=== PATIENT | female | born 2000 | race Caucasian/White ===

== ENCOUNTER 2019-08-22 17:01 | Inpatient (IN) | payer OTHER ==
[~2019-08-22] VITALS: Ht 160 cm; Wt 83.2 kg
[~2019-08-22 17:01] MED LIST: MACROBID100 M1 PO; PREDNICOT10 MG PO
[2019-08-22 17:08] VITALS: BP 120/79
[2019-08-22 17:32] LABS: BASO # 0.1 10*3/uL (0.0-0.1); BASO % 0.5 % (0.0-1.0); EOS # 0.2 10*3/uL (0.0-0.4); EOS % 1.4 % (1.0-4.0); HEMATOCRIT 41.5 % (37.0-47.0); HEMOGLOBIN 13.1 g/dl (12.0-16.0); LYMPH # 3.3 10*3/uL (1.3-4.4); LYMPH % 31.6 % (27.0-41.0); MEAN CELL VOLUME 86.8 fl (81.0-99.0); MEAN CORPUSCULAR HGB 27.4 pg (27.0-31.0); MEAN CORPUSCULAR HGB CONC 31.6 g/dl (33.0-37.0); MEAN PLATELET VOLUME 10.1 fl (9.6-12.3); MONO # 0.8 10*3/uL (0.1-1.0); MONO % 7.5 % (3.0-9.0); NEUT # 6.1 10*3/uL (2.3-7.9); NEUT % 58.7 % (47.0-73.0); PLATELET COUNT AUTOMATED 326 10*3/uL (130-400); RED BLOOD COUNT 4.78 10*6/uL (4.10-5.10); RED CELL DISTRI WIDTH 14.2 % (0-14.5); WHITE BLOOD COUNT 10.4 10*3/uL (4.8-10.8)
[2019-08-22 17:44] LABS: COLOR YELLOW (YELLOW)
[2019-08-22 17:45] LABS: BILIRUBIN NEGATIVE (NEGATIVE); BLOOD 3+ (NEGATIVE); CLARITY CLEAR (CLEAR); GLUCOSE NEGATIVE (NEGATIVE); KETONE NEGATIVE (NEGATIVE); LEUKO ESTERASE NEGATIVE (NEGATIVE); NITRITE NEGATIVE (NEGATIVE); PH 6.5 (5.0-9.0); UROBILINOGEN 0.2 E.U./dl (0.2-1.0)
[2019-08-22 17:47] LABS: ALBUMIN 4.2 gm/dl (3.1-4.5); ALKALINE PHOSPHATASE 75 U/L (45-117); BUN 11 mg/dl (7-24); CHLORIDE 105 mmol/L (98-107); CREATININE 0.93 mg/dL (0.55-1.02); LIPASE 170 U/L (73-393); POTASSIUM 3.9 mmol/L (3.5-5.1); SGOT/AST 14 IU/L (3-35); SGPT/ALT 29 U/L (12-78); SODIUM 140 mmol/L (136-145)
[2019-08-22 17:57] LABS: BACTERIA 1+; RBC 0-2 rbc/hpf (0-2)
--- NOTE | 2019-08-22 18:52 | NUR ---
PT RESTING IN BED. STATES TORADOL HELPED PAIN A LITTLE. IN NO ACUTE DISTRESS.
--- NOTE | 2019-08-22 21:00 | NUR ---
NG TUBE PLACED IN LEFT NOSTRIL. PT TOLERATED PROCEDURE WELL. PLACEMENT WAS HEARD VIA STETHOSCOPE AND SYRINGE. DR KHANNA NOTIFIED AND WILL ORDER XRAY FOR CONFIRMATION.
--- NOTE | 2019-08-22 21:51 | NUR ---
PTS NG TUBE CAME OUT. PT AWAKE AND ALERT, IN NO ACUTE DISTRESS. ANOTHER NG TUBE WILL BE PLACED.
--- NOTE | 2019-08-22 22:04 | NUR ---
NG TUBE PLACED IN PTS LEFT NOSTRIL. PT HANDLED PROCEDURE WELL. DR KHANNA WAS NOTIFIED AND I WAS ADVISED TO ORDER ANOTHER CHEST XRAY FOR NG PLACEMENT
[2019-08-22 22:40] VITALS: BP 126/70
--- NOTE | 2019-08-22 22:45 | NUR ---
DR. EDWARDS PHONED AND ASKED IF PT IS TO BE HOOKED UP TO LIS. V.O. FOR LIS TO NG.
--- NOTE | 2019-08-22 23:14 | NUR ---
Time: 2239 A 19 year old FEMALE admitted to under services of YAMILKA HURTADO DO. Pt. arrived via ambulatory from ER. Chief complaint: ABD PAIN. DANIEL DELCID
[2019-08-22] MEDS ORDERED: LEXAPRO10 MG PO (23:19)
--- NOTE | 2019-08-22 23:23 | NUR ---
PT MEDICATED W/IVP ZOFRAN FOR C/O NAUSEA. WILL MONITOR.
--- NOTE | 2019-08-22 23:31 | NUR ---
PT MEDICATED W/DILAUDID IVP FOR C/O RLQ ABD PAIN 12/17. PT RESTING QUIETLY IN BED W/NG AT LIS. CALL LIGHT IN REACH.
[2019-08-23] VITALS: BP 120/67
[2019-08-23 06:31] LABS: BASO % 0.4 % (0.0-1.0); EOS # 0.1 10*3/uL (0.0-0.4); EOS % 1.6 % (1.0-4.0); HEMATOCRIT 40.2 % (37.0-47.0); HEMOGLOBIN 12.3 g/dl (12.0-16.0); LYMPH # 2.8 10*3/uL (1.3-4.4); LYMPH % 37.7 % (27.0-41.0); MEAN CELL VOLUME 87.6 fl (81.0-99.0); MEAN CORPUSCULAR HGB 26.8 pg (27.0-31.0); MEAN CORPUSCULAR HGB CONC 30.6 g/dl (33.0-37.0); MEAN PLATELET VOLUME 10.3 fl (9.6-12.3); MONO # 0.5 10*3/uL (0.1-1.0); MONO % 7.2 % (3.0-9.0); NEUT # 3.9 10*3/uL (2.3-7.9); NEUT % 52.8 % (47.0-73.0); PLATELET COUNT AUTOMATED 256 10*3/uL (130-400); RED BLOOD COUNT 4.59 10*6/uL (4.10-5.10); RED CELL DISTRI WIDTH 14.3 % (0-14.5); WHITE BLOOD COUNT 7.4 10*3/uL (4.8-10.8)
[2019-08-23 06:47] LABS: ACT PARTIAL THROMBO TIME 29.6 SECONDS (20.0-32.1)
[2019-08-23 06:59] LABS: ALBUMIN 3.5 gm/dl (3.1-4.5); BUN 9 mg/dl (7-24); CHLORIDE 111 mmol/L (98-107); CHOLESTEROL 167 mg/dL (<200); CREATININE 0.96 mg/dL (0.55-1.02); POTASSIUM 4.1 mmol/L (3.5-5.1); SGOT/AST 14 IU/L (3-35); SGPT/ALT 26 U/L (12-78); SODIUM 143 mmol/L (136-145); TOTAL PROTEIN 6.6 gm/dL (6.4-8.2); TRIGLYCERIDES 140 mg/dl (<150); VLDL CHOLESTEROL 28 mg/dL (6-40)
[2019-08-23 07:05] LABS: ALKALINE PHOSPHATASE 61 U/L (45-117); HDL CHOLESTEROL 41 mg/dl (40-60); LDL CHOLESTEROL 98 mg/dL (9-159)
--- NOTE | 2019-08-23 07:15 | NUR ---
VITAL SIGNS ARE STABLE AT THIS TIME. PATIENT IS RESTING IN BED. SHE IS A&OX3. PATIENT IS PLEASANT AND COOPERATIVE. 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 MSPS INTACT. HEART SOUNDS ARE NORMAL. LUNG SOUNDS ARE CLEAR THROUGHOUT. ABDOMEN IS SOFT, NONTENDER AND NON DISTENDED. BSX4, HYPERACTIVE. PATIENT DENIES PASSING ANY FLATULANCE. HER LAST BM WAS YESTERDAY MORNING. THE PATIENT DOES HAVE A 22G IV INTACT TO THE LEFT ARM, IT IS PATENT. CAPILLARY REFILL IS LESS THAN 3 SECONDS. SKIN TURGOR IS GOOD AND IT IS NON TENTING. SALEM SUMP NGT INTACT TO THE LEFT NARE ON LOW INTERMITTENT SUCTION. THERE IS APPROX 30ML OF CONTENTS IN THE CONTAINER. PATIENT IS RESTING AT THIS TIME. CALL LIGHT WITHIN REACH. WILL CONTINUE TO MONITOR PATIENT. PETER DEL ROSARIO [facility]
--- NOTE | 2019-08-23 07:22 | NUR ---
THE PATIENT RECEIVED DILAUDID 1MG IVP BY HUNTER KIMBALL FOR COMPLAINTS OF MID ABDOMINAL PAIN. SHE STATES THAT HER PAIN IS A 6 OUT OF 10. THE PATIENT IS RESTING IN HER BED AT THIS TIME. HER LIGHT HAVE BEEN DIMMED. WILL CONTINUE TO MONITOR PATIENT. CALL LIGHT IN REACH. PETER DEL ROSARIO [facility] [place]
--- NOTE | 2019-08-23 07:22 | NUR ---
PATIENT RECEIVED DILAUDID 1MG IVP BY HUNTER KIMBALL RN FOR COMPLAINTS OF MID ABDOMINAL PAIN. THE PATIENT RATES HER PAIN A 6 OUT OF 10. PETER SHARMA
--- NOTE | 2019-08-23 07:50 | NUR ---
DR HERNANDEZ IN TO SEE PATIENT. SEE NEW ORDERS. PETER DEL ROSARIO [facility]
--- NOTE | 2019-08-23 07:50 | NUR ---
DR HERNANDEZ IN TO SEE PATIENT AT THIS TIME. PETER DEL ROSARIO [facility]
[2019-08-23 08:00] VITALS: BP 124/82
--- NOTE | 2019-08-23 08:00 | NUR ---
THE PATIENT STATES THAT THE MEDICATION HAS DECREASED HER PAIN LEVEL. SHE NOW RATES HER PAIN A 2 OUT OF 10. PATIENT CONTINUES TO REST. CALL LIGHT WITHIN REACH. WILL CONTINUE TO MONITOR PATIENT. PETER DEL ROSARIO [employer]
[2019-08-23 08:49] LABS: VITAMIN D, 25-HYDROXY 24.6 ng/mL (30-100)
--- NOTE | 2019-08-23 09:00 | NUR ---
Debt Counselor in to talk to patient. Patient states lives at home with her fidoretha and daughter. There are 0 steps in the home. Physician: Jennifer Mcrae Pharmacy: [facility] Home health services: none Patient's level of ADLs: INDEPENDENT Patient has working utilities: yes DME: none Follow-up physician's appointment after d/c: will be made by the hospitalist nurse director upon discharge Does patient want to access PORTAL?: no Discharge plan discussed with patient. Madalyn and daughter at bedside. She is sitting up in her bedside chair without distress noted. She lives at home with her family. She is independent in her ADLs and ambulation. Discussed home health care services and she denies any home needs. When medically stable she will be discharged to home. She states her madalyn will provide transportation on discharge. NEGAR LUIS
--- NOTE | 2019-08-23 09:36 | NUR ---
THE PATIENT IS UP AND WAS ASSITED TO SIT IN THE RECLINER IN HER ROOM. SHE HAS NO COMPLAINTS AT THIS TIME. CALL LIGHT IN REACH. WILL CONTINUE TO MONITOR PATIENT. PETER SHARMA
--- NOTE | 2019-08-23 09:40 | NUR ---
DR CRAVEN IN TO SEE PATIENT. PETER DEL ROSARIO [facility]
--- NOTE | 2019-08-23 10:12 | NUR ---
PATIENT HAS FAMILY IS IN THE PATIENT ROOM VISITING. PETER DEL ROSARIO [facility]
--- NOTE | 2019-08-23 10:48 | NUR ---
THE PATIENTS NGT AND IV FLUIDS WERE DISCONECTED TEMPORARILY FOR THE PATIENT TO AMBULATE AROUND THE UNIT WITH THE ASSISTANCE OF MYSELF. TOLERATED WELL. SHE DID NOT EXPERIENCE ANY DIZZINESS, DIAPHORESIS, ABDOMINAL PAIN, HEADACHE OR ANY OTHER COMPLAINTS. THE PATIENT HAS BEEN RECONNECTED TO HER IV FLUIDS AND NGT AFTER AMBULATING. PETER SHARMA
--- NOTE | 2019-08-23 11:36 | NUR ---
DILAUDID 1MG IVP BY HUNTER KIMBALL WAS ADMINISTERED FOR COMPLAINTS OF A HEADACHE THAT HAD AN ONSET OF APPROX 10 MINUTES AGO. SHE DESCRIBES IT A THROBBING SENSATION. SHE RATES HER PAIN A 6/10. WILL CONTINUE TO MONITOR PATIENT. CALL LIGHT IN REACH. PETER DEL ROSARIO [facility]
[2019-08-23 12:00] VITALS: BP 116/76
--- NOTE | 2019-08-23 12:07 | NUR ---
THE PATIENT STATES THAT HER HEADACHE HAS IMPROVED. SHE NOTES THAT THE MEDICATION WAS EFFECTIVE. SHE IS RESTING IN BED AT THIS TIME WITH HER EYES CLOSED. RESPIRATIONS ARE NON LABORED AND EASY. HER BOYFRIEND IS AT HER BEDSIDE. SHE HAS NO FUTHER COMPLAINTS. CALL LIGHT WITHIN REACH. WILL CONTINUE TO MONITOR PATIENT. PETER DEL ROSARIO [facility]
--- NOTE | 2019-08-23 14:44 | NUR ---
Nutritional Support Services Note: Dx of SBO, abdominal pain. She currently is NPO. NGT to LIS. IVF as ordered. Will follow for advancement of po intake. Ingrid Russell Rdn Ld
[2019-08-23 16:00] VITALS: BP 107/68
--- NOTE | 2019-08-23 18:45 | NUR ---
PT MEDICATED WITH PRN ZOFRAN AND DILAUDID FOR C/O NAUSEA AND ABDOMINAL PAIN. WILL MONITOR.
--- NOTE | 2019-08-23 19:45 | NUR ---
24 HOUR CHART CHECK COMPLETE
[2019-08-23 20:00] VITALS: BP 109/51
--- NOTE | 2019-08-23 20:05 | NUR ---
PATIENT NG REMAINS INTACT IN LEFT NARES AT THIS TIME AND REMAINS TO LOW INTERMITTENT SUCTION VIA WALL SUCTION, THERE HAS BEEN NO INCREASE IN THE AMOUNT OF DRAINAGE FROM THE NG FROM THE PREVIOUS SHIFT OF 30CC. CALL LIGHT WITHIN REACH WILL CONTINUE TO MONITOR.
--- NOTE | 2019-08-23 23:37 | NUR ---
PRN IV DILAUDID GIVEN AT THIS TIME FOR COMPLAINT OF ABDOMINAL PAIN 02/16, PATIENT A&O X3 AT THIS TIME.
[2019-08-24] VITALS: BP 118/56
--- NOTE | 2019-08-24 00:30 | NUR ---
PATIENT RESTING IN BED IN A POSITION OF COMFORT, WITH EYES CLOSED, AND RESPIRATIONS EASY AND NON-LABORED, NO SIGNS OR SYMPTOMS NOTED AT THIS TIME, CALL LIGHT WITHIN REACH WILL CONTINUE TO MONITOR.
--- NOTE | 2019-08-24 05:32 | NUR ---
PRN IV TORADOL GIVEN AT THIS TIME FOR PERSISTANT HEADACHE OF 8/10 PER PATIENT. PATIENT A&O X3 AT THIS TIME. CALL LIGHT WITHIN REACH WILL CONTINUE TO MONITOR.
--- NOTE | 2019-08-24 06:28 | NUR ---
PATIENT RESTING IN BED IN A POSITION OF COMFORT, EYES CLOSED, RESPIRATION EASY AND NON-LABORED AT THIS TIME, NO SIGNS OR SYMPTOMS OF PAIN OR HEADACHE NOTED AT THIS TIME. CALL LIGHT WITHIN REACH WILL CONTINUE TO MONITOR.
[2019-08-24 06:37] LABS: BUN 8 mg/dl (7-24); CHLORIDE 107 mmol/L (98-107); CREATININE 0.81 mg/dL (0.55-1.02); SODIUM 139 mmol/L (136-145)
--- NOTE | 2019-08-24 07:54 | NUR ---
DR HERNANDEZ ROUNDED AND ORDER RECEIVED. PT TO REMAIN NPO BUT D/C NG.
[2019-08-24 08:00] VITALS: BP 117/55
--- NOTE | 2019-08-24 08:15 | NUR ---
D/C'D NG PER DR HERNANDEZ'S ORDER. 1 BOWEL SOUND NOTED PER RUQ PRIOR TO D/C. DR HERNANDEZ AND DR TEJEDA AWARE.PT TOLERATED WELL. D/C TOTALS 30 CC SINCE PLACEMENT.PT DENIES PASSING GAS AT THIS TIME. EDUCATION PROVIDED REGARDING SIGNS AND SYMPTOMS TO NOTIFY RN.FAMILY AT BEDSIDE. CALL LIGHT IN REACH.
--- NOTE | 2019-08-24 10:18 | NUR ---
PT DENIES ANY DISTENTION,NAUSEA,ABD PAIN OR PRESSURE.STABLE AT THIS TIME.DENIES PAIN AT THIS TIME. VOICES NO OTHER C/O.WILL CONTINUE TO MONITOR. CALL LIGHT IN REACH.
[2019-08-24 12:00] VITALS: BP 117/71
--- NOTE | 2019-08-24 12:14 | NUR ---
PT RESTING COMFORTABLY WITH EYES CLOSED. NO DISTRESS NOTED. STABLE AT THIS TIME. RESPS EASY ON RA. FAMILY AT BEDSIDE. CALL LIGHT IN REACH.
--- NOTE | 2019-08-24 15:13 | NUR ---
AFTERNOON ASSESMENT COMPLETED. PT STATES SHE IS NOW PASSING GAS BUT STILL HAS NOT HAD A BOWEL MOVEMENT.ALL OTHER SYSTEMS WNL. WILL CONTINUE TO MONITOR. CALL LIGHT IN REACH.
[2019-08-24 16:00] VITALS: BP 116/67
--- NOTE | 2019-08-24 16:25 | NUR ---
TORADOL GIVEN PER MAR FOR C/O PAIN,01/16.
--- NOTE | 2019-08-24 16:30 | NUR ---
NOTIFIED DR HERNANDEZ PT HAD POSITIVE HYPOACTIVE BOWEL SOUNDS AND HAS BEEN PASSING GAS. PT HAD MADE MUTIPLE LAPS IN HALLWAY.PT REQUESTING DIET.ORDER RECEIVED.
[2019-08-24 20:00] VITALS: BP 91/55
--- NOTE | 2019-08-24 20:00 | NUR ---
24 HOUR CHART CHECK COMPLETE
[2019-08-25] VITALS: BP 114/56
[2019-08-25 08:00] VITALS: BP 117/58
--- NOTE | 2019-08-25 09:27 | NUR ---
DR HERNANDEZ ROUNDED AND ORDERS RECIEVED.
--- NOTE | 2019-08-25 10:23 | NUR ---
PT REPORTS NO C/O FOLLOWING EATING REGULAR BREAKFAST THIS AM.
[2019-08-25 12:00] VITALS: BP 112/58
--- NOTE | 2019-08-25 13:39 | NUR ---
Discharge instructions reviewed with patient/family. Patient receptive and verbalizes understanding. Follow-up care arranged. Written instructions given to patient/family. LAURENT SMITH
== END 2019-08-25 13:46 | disposition home or self-care (01) | DRG 390 ==
LOC: ED 17:01 → EDHOLD 20:22 → 5E 20:22
PROVIDERS: Internal Medicine; Nurse Practitioner Family; ADMIT Internal Medicine
PROC: 0D9670Z Drainage of Stomach with Drainage Device, Via Natural or Artificial Opening (ICD-10-PCS; principal; 2019-08-22)
DX: K56.600 Partial intestinal obstruction, unspecified as to cause (principal); R19.7 Diarrhea, unspecified; F41.9 Anxiety disorder, unspecified; F32.9 Major depressive disorder, single episode, unspecified; Z87.891 Personal history of nicotine dependence; Z79.899 Other long term (current) drug therapy

== ENCOUNTER → 2020-03-19 | Outpatient (CLI) | payer OTHER ==
[~2020-03-19] MED LIST changes: +LEXAPRO10 MG PO
== END | disposition home or self-care (01) ==
LOC: RAD 14:05
PROVIDERS: ATTEND Urology
DX: N20.0 Calculus of kidney (principal)

== ENCOUNTER → 2020-05-19 | Outpatient (CLI) | payer OTHER | END | disposition home or self-care (01) | LOC: US 13:17 | PROVIDERS: ATTEND Nurse Practitioner Women's Health | DX: Z34.81 Encounter for supervision of other normal pregnancy, first trimester (principal); Z3A.11 11 weeks gestation of pregnancy ==

== ENCOUNTER → 2020-05-27 | Outpatient (CLI) | payer OTHER | END | disposition home or self-care (01) | LOC: LAB 00:46 | PROVIDERS: ATTEND Nurse Practitioner Women's Health | DX: O26.891 Other specified pregnancy related conditions, first trimester (principal); R03.0 Elevated blood-pressure reading, without diagnosis of hypertension; Z3A.12 12 weeks gestation of pregnancy ==

== ENCOUNTER → 2020-06-22 | Outpatient (CLI) | payer OTHER | END | disposition home or self-care (01) | LOC: LAB 06-19 00:06 | PROVIDERS: ATTEND Nurse Practitioner Women's Health | DX: Z34.82 Encounter for supervision of other normal pregnancy, second trimester (principal); Z3A.15 15 weeks gestation of pregnancy; Z68.32 Body mass index [BMI] 32.0-32.9, adult ==

== ENCOUNTER → 2020-06-24 | Outpatient (CLI) | payer OTHER | END | disposition home or self-care (01) | LOC: LAB 09:30 | PROVIDERS: ATTEND Nurse Practitioner Women's Health | DX: Z34.82 Encounter for supervision of other normal pregnancy, second trimester (principal); Z3A.16 16 weeks gestation of pregnancy; E66.9 Obesity, unspecified ==

== ENCOUNTER → 2020-07-22 | Outpatient (CLI) | payer OTHER | END | disposition home or self-care (01) | LOC: US 13:00 | PROVIDERS: ATTEND Nurse Practitioner Women's Health | DX: Z34.82 Encounter for supervision of other normal pregnancy, second trimester (principal); Z3A.21 21 weeks gestation of pregnancy ==

== ENCOUNTER → 2020-08-19 | Outpatient (CLI) | payer OTHER | END | disposition home or self-care (01) | LOC: US 02:06 | PROVIDERS: ATTEND Nurse Practitioner Women's Health | DX: O43.102 Malformation of placenta, unspecified, second trimester (principal); Z3A.24 24 weeks gestation of pregnancy ==

== ENCOUNTER 2020-08-29 23:28 | Emergency (ER) | payer OTHER ==
[~2020-08-29] VITALS: Ht 160 cm; Wt 90.7 kg
[2020-08-29 23:52] LABS: HEMATOCRIT 34.4 % (37.0-47.0); MEAN CELL VOLUME 89.1 fl (81.0-99.0); MEAN CORPUSCULAR HGB 27.7 pg (27.0-31.0); MEAN CORPUSCULAR HGB CONC 31.1 g/dl (33.0-37.0); MEAN PLATELET VOLUME 9.1 fl (9.6-12.3); PLATELET COUNT AUTOMATED 240 10*3/uL (130-400); RED BLOOD COUNT 3.86 10*6/uL (4.10-5.10); WHITE BLOOD COUNT 18.8 10*3/uL (4.8-10.8)
[2020-08-30 00:10] LABS: ALBUMIN 2.8 gm/dl (3.1-4.5); ALKALINE PHOSPHATASE 85 U/L (45-117); BUN 9 mg/dl (7-24); CHLORIDE 106 mmol/L (98-107); CREATININE 0.64 mg/dL (0.55-1.02); POTASSIUM 3.2 mmol/L (3.5-5.1); SGOT/AST 10 IU/L (3-35); SGPT/ALT 22 U/L (12-78); SODIUM 138 mmol/L (136-145); TOTAL PROTEIN 7.1 gm/dL (6.4-8.2)
[2020-08-30 00:22] LABS: TOTAL CELLS COUNTED 100 #CELLS
[2020-08-30 00:23] LABS: OVALOCYTES FEW; PLATELET SUFFICIENCY NORMAL (NORMAL)
[2020-08-30 00:24] LABS: BURR CELLS FEW
[2020-08-30 00:27] LABS: BILIRUBIN Negative (Negative); BLOOD Negative (Negative); CLARITY Cloudy (Clear); COLOR Yellow (Yellow); GLUCOSE Negative (Negative); KETONE 2+ (Negative); LEUKO ESTERASE 2+ (Negative); NITRITE Negative (Negative); PH 6.5 (4.5-8.0)
[2020-08-30 00:36] LABS: EPITHELIAL CELLS 21-30
[2020-08-30 00:37] LABS: BACTERIA 2+
== END 2020-08-30 03:00 | disposition short-term general hospital (02) ==
LOC: ED 23:28
PROVIDERS: Internal Medicine
DX: O99.612 Diseases of the digestive system complicating pregnancy, second trimester (principal); K56.609 Unspecified intestinal obstruction, unspecified as to partial versus complete obstruction; Z3A.26 26 weeks gestation of pregnancy; Z79.899 Other long term (current) drug therapy; Z87.891 Personal history of nicotine dependence

== ENCOUNTER 2022-10-05 15:56 | Emergency (ER) | payer OTHER ==
[~2022-10-05] VITALS: Ht 160 cm; Wt 90.7 kg
== END 2022-10-05 18:02 | disposition home or self-care (01) ==
LOC: ED 15:56
DX: S93.602A Unspecified sprain of left foot, initial encounter (principal); Z98.890 Other specified postprocedural states; Z87.891 Personal history of nicotine dependence; W10.9XXA Fall (on) (from) unspecified stairs and steps, initial encounter; Y93.89 Activity, other specified; Y92.89 Other specified places as the place of occurrence of the external cause; Y99.8 Other external cause status

== ENCOUNTER → 2022-11-12 | Outpatient (CLI) | payer OTHER ==
[2022-11-12 09:29] LABS: BASO # 0.1 10*3/uL (0.0-0.1); BASO % 0.7 % (0.0-1.0); EOS # 0.1 10*3/uL (0.0-0.4); EOS % 1.9 % (1.0-4.0); HEMATOCRIT 40.6 % (37.0-47.0); LYMPH # 1.9 10*3/uL (1.3-4.4); LYMPH % 26.6 % (27.0-41.0); MEAN CELL VOLUME 84.4 fl (81.0-99.0); MEAN CORPUSCULAR HGB 26.8 pg (27.0-31.0); MEAN CORPUSCULAR HGB CONC 31.8 g/dl (33.0-37.0); MONO # 0.4 10*3/uL (0.1-1.0); MONO % 5.4 % (3.0-9.0); NEUT # 4.5 10*3/uL (2.3-7.9); NEUT % 65.1 % (47.0-73.0); PLATELET COUNT AUTOMATED 298 10*3/uL (130-400); RED BLOOD COUNT 4.81 10*6/uL (4.10-5.10); RED CELL DISTRI WIDTH 14.5 % (0-14.5)
[2022-11-12 09:53] LABS: ALKALINE PHOSPHATASE 62 U/L (46-116); BUN 10 mg/dl (9-23); CHLORIDE 106 mmol/L (98-107); CHOLESTEROL 183 mg/dL (<200); LDL CHOLESTEROL 97 mg/dL (9-159); POTASSIUM 3.9 mmol/L (3.4-5.1); SGPT/ALT 30 U/L (10-49); THYROID STIM HORMONE (HS) 1.171 uIU/ml (0.550-4.780); TOTAL PROTEIN 6.9 gm/dL (6.0-8.0); TRIGLYCERIDES 256 mg/dl (<150)
== END | disposition home or self-care (01) ==
LOC: LAB 08:56
PROVIDERS: ATTEND Family Medicine
DX: Z00.00 Encounter for general adult medical examination without abnormal findings (principal); Z13.220 Encounter for screening for lipoid disorders; F41.9 Anxiety disorder, unspecified

== ENCOUNTER 2024-09-08 12:02 | Emergency (ER) | payer OTHER ==
[~2024-09-08] VITALS: Ht 162.5 cm
[2024-09-08 12:54] LABS: BASO % 0.3 % (0.0-1.0); EOS # 0.1 10*3/uL (0.0-0.4); EOS % 0.9 % (1.0-4.0); HEMATOCRIT 39.2 % (37.0-47.0); MEAN CORPUSCULAR HGB 27.1 pg (27.0-31.0); MEAN CORPUSCULAR HGB CONC 31.9 g/dl (33.0-37.0); MEAN PLATELET VOLUME 9.7 fl (9.6-12.3); MONO # 0.6 10*3/uL (0.1-1.0); MONO % 6.6 % (3.0-9.0); NEUT # 6.1 10*3/uL (2.3-7.9); NEUT % 70.4 % (47.0-73.0); PLATELET COUNT AUTOMATED 261 10*3/uL (130-400); RED BLOOD COUNT 4.61 10*6/uL (4.10-5.10); RED CELL DISTRI WIDTH 14.3 % (0-14.5); WHITE BLOOD COUNT 8.7 10*3/uL (4.8-10.8)
[2024-09-08 12:58] LABS: BILIRUBIN Negative (Negative); BLOOD Negative (Negative); CLARITY Clear (Clear); COLOR Yellow (Yellow); GLUCOSE Negative (Negative); KETONE Negative (Negative); LEUKO ESTERASE 2+ (Negative); NITRITE Negative (Negative); PH 6.5 (4.5-8.0); SPECIFIC GRAVITY 1.025 (1.001-1.030); UROBILINOGEN 0.2 E.U./dl (0.0-1.0)
[2024-09-08 13:11] LABS: BACTERIA 4+
[2024-09-08 13:15] LABS: ALKALINE PHOSPHATASE 61 U/L (46-116); BUN 17 mg/dl (9-23); CHLORIDE 105 mmol/L (98-107); POTASSIUM 3.9 mmol/L (3.4-5.1); SGPT/ALT 21 U/L (5-49); TOTAL PROTEIN 7.2 gm/dL (6.0-8.0)
[2024-09-08] MEDS ORDERED: AUGMENTIN 500500 M1 PO (14:02)
[2024-09-08] MEDS ORDERED: Amoxicillin/Clavulanate Pota 500 MG TAB PO ONE (14:05)
== END 2024-09-08 14:29 | disposition home or self-care (01) ==
LOC: ED 12:02
PROVIDERS: Nurse Practitioner
DX: M94.0 Chondrocostal junction syndrome [Tietze] (principal); N39.0 Urinary tract infection, site not specified; Z98.890 Other specified postprocedural states; Z87.891 Personal history of nicotine dependence

== ENCOUNTER → 2025-01-29 | Outpatient (CLI) | payer OTHER ==
[~2025-01-29] MED LIST changes: +AUGMENTIN 500500 M1 PO
== END | disposition home or self-care (01) ==
LOC: ORTHO 08:22
PROVIDERS: ATTEND Orthopaedic Surgery
DX: M79.641 Pain in right hand (principal); M89.8X8 Other specified disorders of bone, other site

== ENCOUNTER 2025-06-16 18:59 | Emergency (ER) | payer OTHER ==
[~2025-06-16] VITALS: Ht 160 cm; Wt 90.7 kg
[2025-06-16] MEDS ORDERED: SODIUM CHLORIDE 0.9% 1,000 ML IV ONE (21:10)
[2025-06-16] MEDS ORDERED: IOHEXOL 300 MG/ML 100 ML VIAL IV ONE (21:20)
[2025-06-16 21:28] LABS: BASO # 0.1 10*3/uL (0.0-0.1); BASO % 0.5 % (0.0-1.0); EOS # 0.2 10*3/uL (0.0-0.4); EOS % 1.6 % (1.0-4.0); MEAN CELL VOLUME 86.6 fl (81.0-99.0); MEAN CORPUSCULAR HGB 27.3 pg (27.0-31.0); MEAN PLATELET VOLUME 9.7 fl (9.6-12.3); MONO # 0.7 10*3/uL (0.1-1.0); MONO % 6.5 % (3.0-9.0); NEUT # 7.5 10*3/uL (2.3-7.9); NEUT % 70.2 % (47.0-73.0); NUCLEATED RED BLOOD CELL 0.0 % (0.0-0.0); NUCLEATED RED BLOOD CELL 0.0 10*3/uL (0.0-0.0); PLATELET COUNT AUTOMATED 254 10*3/uL (130-400); RED CELL DISTRI WIDTH 14.5 % (0-14.5)
[2025-06-16 21:28] LABS: BILIRUBIN Negative (Negative); BLOOD Negative (Negative); CLARITY Cloudy (Clear); COLOR Yellow (Yellow); KETONE Negative (Negative); LEUKO ESTERASE Negative (Negative); NITRITE Negative (Negative); PH 7.0 (4.5-8.0); SPECIFIC GRAVITY 1.020 (1.001-1.030); UROBILINOGEN 1.0 E.U./dl (0.0-1.0)
[2025-06-16 21:36] LABS: BACTERIA 1+; RBC 0-2 rbc/hpf (0-2); WBC 0-2 wbc/hpf (0-5)
[2025-06-16 21:49] LABS: BUN 14 mg/dl (9-23); SGPT/ALT 23 U/L (5-49)
[2025-06-16] MEDS ORDERED: CIPRO500 MG PO (23:12)
[2025-06-16] MEDS ORDERED: METRONIDAZOLE500 M1 PO (23:12)
[2025-06-16] MEDS ORDERED: PREDNISONE20 M1 PO (23:13)
[2025-06-16] MEDS ORDERED: metroNIDAZOLE 500 MG TAB PO ONE (23:15)
[2025-06-16] MEDS ORDERED: Ciprofloxacin Hydrochloride 500 MG TAB PO ONE (23:15)
== END 2025-06-16 23:31 | disposition home or self-care (01) ==
LOC: ED 18:59
PROVIDERS: Nurse Practitioner Family
DX: K52.9 Noninfective gastroenteritis and colitis, unspecified (principal); R10.9 Unspecified abdominal pain; F32.A Depression, unspecified